=== PATIENT | male | born 1980 | race Hispanic/Latino ===

== ENCOUNTER 2023-06-15 08:30 | Emergency (ER) | payer OTHER, MEDICAID, SELFPAY ==
[2023-06-15] VITALS (11 sets, daily range): BP systolic 161–178; BP diastolic 79–103; PULSE 92–103; RESP 16–24; TEMP 36.5; O2SAT 93–99; BMI 33.9
--- NOTE | 2023-06-15 08:46 | DI.RAD.S_ITS ---
PROCEDURE: XR FOREARM LT 2V INDICATIONS: state fell on ice, pain swelling L forearm TECHNIQUE: 2 views of the forearm were acquired. COMPARISON: [facility], CR, XR ELBOW LT MIN 3V, 06/15/2023, 9:25. FINDINGS: Bones: Comminuted fracture of the olecranon with numerous butterfly fragments. Due to patient compliance, lateral views were not obtained. The distal radioulnar joint appears to be congruent. Soft tissues: No suspicious soft tissue calcifications or masses. IMPRESSION: Severely comminuted proximal ulnar fracture Dictated by: Hiram Whitlock M.D. on 06/15/2023 at 9:14 Approved by: Hiram Whitlock M.D. on 06/15/2023 at 9:17
--- NOTE | 2023-06-15 08:55 | DI.RAD.S_ITS ---
PROCEDURE: XR ELBOW LT MIN 3V INDICATIONS: fall TECHNIQUE: To COMPARISON: None. FINDINGS: Bones: Severely comminuted fracture olecranon with numerous butterfly fragments. Due to patient compliance lateral views were not obtained. Soft tissues: No suspicious soft tissue calcifications. IMPRESSION: Severely comminuted proximal ulnar fracture Dictated by: Hiram Whitlock M.D. on 06/15/2023 at 9:17 Approved by: Hiram Whitlock M.D. on 06/15/2023 at 9:18
--- NOTE | 2023-06-15 08:56 | ED.UPPEXIN ---
HPI - Extremity Injury (Upper) General Chief Complaint: Extremity Injury, Upper Stated Complaint: left arm pain Time Seen by Provider: 06/15/23 08:46 History of Present Illness HPI narrative: Patient 43-year-old male who presents today with left arm pain and swelling for about 2 days. Reports that he fell in his driveway on concrete and thinks he landed mostly on his left arm. He is significant swelling decreased range of motion. Not able to move it. Denies any other injury. Related Data Previous Rx's Medication Instructions Recorded hydrocodone 5 mg-acetaminophen 325 1 tab PO Q6H PRN pain #7 tabs 06/15/23 mg tablet Allergies Allergy/AdvReac Type Severity Reaction Status Date / Time No Known Drug Allergies Allergy Verified 06/15/23 09:07 Exam Initial Vital Signs Initial Vital Signs: Vital Signs Pulse Rate 103 H 06/15/23 08:42 Pulse Oximetry 99 06/15/23 08:42 GENERAL: Disheveled dirty 43-year-old male CARDIOVASCULAR: peripheral pulses in tact, cap refill <2 sec RESPIRATORY: No respiratory distress, speaks in full sentences without difficulty EXTREMITIES: Normal range of motion, no clubbing or edema. Neurovascularly intact Left upper extremity significant swelling medial contusion distal radial pulse intact difficult to move fingers due to swelling and pain. Some slight pain and decreased range and shoulder as well. NEUROLOGICAL: Cranial nerves II through XII grossly intact. Normal gait and speech. SKIN: Warm, dry, no petechiae, no rashes or lesions. Procedures Orthopedic Splinting/Casting Injury #1: Side: left Upper Extremity Injury Location: elbow Upper Extremity Immobilizer: sling/shoulder immobilizer and posterior splint Post splinting neuro exam: intact Post splinting vascular exam: no change Placed by: Nursing Course Orders Ordered: ED Orders 06/15/23 08:46 XR forearm LT 2V Stat 06/15/23 08:55 XR elbow LT min 3V Stat XR shoulder LT min 2V Stat 06/15/23 11:07 CT UE LT wo con Stat Discontinued Medications Hydrocodone Bitart/Acetaminophen (Hydrocodone/Acet 5/325 Tablet) 1 tab PO NOW ONE Stop: 06/15/23 08:57 Last Admin: 06/15/23 09:09 Dose: 1 tab Documented By: CTS Vital Signs Vital signs: Vital Signs - 8 hr 06/15/23 08:42 06/15/23 08:43 06/15/23 08:43 Temperature 97.7 F Pulse Rate 103 H 103 H 103 H Pulse Rate [Left Radial] Respiratory Rate 16 Blood Pressure 161/103 H Pulse Oximetry 99 98 99 Oxygen Delivery Method Room Air 06/15/23 08:43 06/15/23 09:00 06/15/23 09:16 Temperature Pulse Rate 103 H Pulse Rate [Left Radial] 100 H Respiratory Rate Blood Pressure 161/103 H Pulse Oximetry 98 Oxygen Delivery Method 06/15/23 09:38 06/15/23 10:04 06/15/23 10:30 Temperature Pulse Rate 101 H 102 H 92 H Pulse Rate [Left Radial] Respiratory Rate 17 24 18 Blood Pressure 161/79 H Pulse Oximetry 98 97 98 Oxygen Delivery Method Room Air 06/15/23 10:30 06/15/23 11:00 06/15/23 11:01 Temperature Pulse Rate 96 H 95 H Pulse Rate [Left Radial] Respiratory Rate 20 20 Blood Pressure 174/86 H Pulse Oximetry 98 98 Oxygen Delivery Method 06/15/23 11:01 06/15/23 11:33 06/15/23 11:34 Temperature Pulse Rate 98 H 96 H Pulse Rate [Left Radial] Respiratory Rate 22 Blood Pressure 178/97 H Pulse Oximetry 93 99 Oxygen Delivery Method 06/15/23 11:34 Temperature Pulse Rate Pulse Rate [Left Radial] Respiratory Rate Blood Pressure 175/90 H Pulse Oximetry Oxygen Delivery Method MDM - Extremity Injury (Upper) Imaging Data CT UE: Radiologist's Impression: PROCEDURE: CT UE LT WO CON INDICATIONS: radial head fx TECHNIQUE: Noncontrast 1-1.5 mm axial sections were acquired through the elbow joint, with coronal and sagittal reformats. COMPARISON: None. FINDINGS: Image quality: Nonstandard patient positioning. With the arm at the lateral precision there is increased streak artifact. Bones: Severely comminuted mild to moderately displaced olecranon fracture extending into the ulnar humeral joint space. Numerous osseous fragments the largest measuring up to 3.6 cm. Small osseous fragments along the anterior joint space. The radial head appears appropriately positioned Soft tissues: Small elbow effusion. IMPRESSION: Severely comminuted olecranon fracture Dictated by: Hiram Whitlock M.D. on 06/15/2023 at 11:07 Approved by: Hiram Whitlock M.D. on 06/15/2023 at 11:10 Extremity x-ray #1: Radiologist's Impression: XR SHOULDER LT MIN 2V INDICATIONS: fall TECHNIQUE: 3 views of the shoulder were acquired. COMPARISON: None. FINDINGS: Bones: No fractures or dislocations. No suspicious bony lesions. Visualized ribs appear intact. Soft tissues: No suspicious soft tissue calcifications. IMPRESSION: No acute bony abnormality. Dictated by: Hiram Whitlock M.D. on 06/15/2023 at 9:13 Extremity x-ray #2: Radiologist's Impression: PROCEDURE: XR ELBOW LT MIN 3V INDICATIONS: fall TECHNIQUE: To COMPARISON: None. FINDINGS: Bones: Severely comminuted fracture olecranon with numerous butterfly fragments. Due to patient compliance lateral views were not obtained. Soft tissues: No suspicious soft tissue calcifications. IMPRESSION: Severely comminuted proximal ulnar fracture Extremity x-ray #3: Radiologist's Impression: PROCEDURE: XR FOREARM LT 2V INDICATIONS: state fell on ice, pain swelling L forearm TECHNIQUE: 2 views of the forearm were acquired. COMPARISON: [facility], , XR ELBOW LT MIN 3V, 06/15/2023, 9:25. FINDINGS: Bones: Comminuted fracture of the olecranon with numerous butterfly fragments. Due to patient compliance, lateral views were not obtained. The distal radioulnar joint appears to be congruent. Soft tissues: No suspicious soft tissue calcifications or masses. IMPRESSION: Severely comminuted proximal ulnar fracture MDM Narrative Medical decision making narrative: Patient 43-year-old homeless male presents today with arm pain and swelling injury. He fell 2 days ago. He is slightly somnolent upon initial examination but answers questions complaining of pain. Arm is very swollen able to move fingers but difficult secondary to swelling. He does have a distal radial pulse. Concern for beginning of compartment syndrome. X-ray confirms comminuted proximal ulnar head. Discussed case with Dr. Isaacs on-call orthopedics who recommends CT prior to discharge. I have explained the patient multiple times may require surgery very important to follow-up with orthopedics. Situation is difficult secondary to homelessness and he does not have a phone. It took him 2 days to get to the ED and find a ride. He is splinted appropriately. He was somnolent after the [place]. I suspect other medication on board. He is given a couple [place] for prescription. Discharge Plan Departure Patient Disposition: Home Clinical Impression: Closed fracture of radial head Instructions: DI for Elbow Fracture Activity Restrictions/Additional Instructions: *You have been diagnosed with left radial head fracture *What to do: Keep arm elevated keep arm in sling. Ice 20-30 minutes at a time. *Continue to take medications as directed [place] 1 tablet every 6 hours if needed for severe pain *Follow up with your primary care provider in 2-3 days or call [phone] CALL Orthopedics Saturday to schedule follow-up appointment this may require surgery *Return to ER if you should have increased pain inability to move fingers swelling or any new, worsening or concerning symptoms CONTROLLED SUBSTANCE DISCHARGE (Narcotoic/benzodiazepine/Flexeril/Phenergan) 1. You have been prescribed narcotic medications, it does have acetaminophen/Tylenol/paracetamol in it, DO NOT TAKE MORE THAN 4,00mg in 24 hours of Tylenol. TRAMADOL DOES NOT CONTAIN TYLENOL 2. Please understand that we cannot provide further refills of narcotics, benzodiazepines or controlled substances through the ED and her pain management will need to be through your provider. 3. While on these medications you cannot drive or operate heavy machinery. 4. You cannot sign legal documents or perform any duties such as this. 5. As long as you're taking opiate pain medications he should also be taking a stool softener such as Colace, Dulcolax, MiraLAX or prune juice, to help avoid constipation. Prescriptions: New hydrocodone-acetaminophen 5-325 mg tablet 1 tab PO Q6H PRN (Reason: pain) Qty: 7 0RF Referrals: [facility] [Provider Group] Daisha Isaacs MD [Physician] - Stand Alone Forms: Patient Portal/API
[2023-06-15] MEDS: HYDROCODONE/ACET 5/325 TABLET 1 TAB PO (09:09)
--- NOTE | 2023-06-15 09:10 | PC.NURSE ---
Pt reports yesterday he fell on ice and injured his L arm. L FA and elbow appear grossly swollen, radial pulse palpable. Having difficultly moving extremity. Some bruising around elbow. Pt seems drowsy. Speaking to RN with eyes closed. HR is 104 resting. Hypertensive 161/102. Answering questions yet slow to respond. Denies ETOH or substance use.
--- NOTE | 2023-06-15 11:07 | DI.CT.S_ITS ---
PROCEDURE: CT UE LT WO CON INDICATIONS: radial head fx TECHNIQUE: Noncontrast 1-1.5 mm axial sections were acquired through the elbow joint, with coronal and sagittal reformats. COMPARISON: None. FINDINGS: Image quality: Nonstandard patient positioning. With the arm at the lateral precision there is increased streak artifact. Bones: Severely comminuted mild to moderately displaced olecranon fracture extending into the ulnar humeral joint space. Numerous osseous fragments the largest measuring up to 3.6 cm. Small osseous fragments along the anterior joint space. The radial head appears appropriately positioned Soft tissues: Small elbow effusion. IMPRESSION: Severely comminuted olecranon fracture Dictated by: Hiram Whitlock M.D. on 06/15/2023 at 11:07 Approved by: Hiram Whitlock M.D. on 06/15/2023 at 11:10
== END 2023-06-15 11:50 | disposition home or self-care (01) ==
PROVIDERS: Emergency Provider Emergency Medicine
DX: S52.122A Displaced fracture of head of left radius, initial encounter for closed fracture (principal); S52.022A Displaced fracture of olecranon process without intraarticular extension of left ulna, initial encounter for closed fracture; W19.XXXA Unspecified fall, initial encounter
CPT/HCPCS: 29105; 73030; 73080; 73090; 73200; 99284